=== PATIENT | female | born 1940 | race African-American/Black ===

== ENCOUNTER 2021-06-18 18:16 | Emergency (ER) | payer BC, MEDICAID, MEDICARE ==
[~2021-06-18] VITALS: Ht 162.6 cm; Wt 110.0 kg
[~2021-06-18 18:16] MED LIST: ALBU18HF2 IH; AMLO10TA80 PO; ASPI-1406 PO; ATROPINE SULFATE 1MG/10ML SYR ONE; AZIT500T8 PO; CALCIUM CHLORIDE 1GM/10ML SYR IV ONE; DEXTROSE 50% WATER 50ML SYRINGE IV ONE; EPINEPHRINE 0.1MG/ML (1:10,000) 10ML SYR ONE; P20 PO; SODIUM BICARBONATE 8.4% 1 MEQ/ML 50ML SYR IV ONE
[2021-06-18 18:18] VITALS: BP 150/91
[2021-06-18] MEDS ORDERED: NALOXONE HCL 1 MG/ML 2ML VIAL ONE (18:34)
[2021-06-18] MEDS ORDERED: SODIUM CHLORIDE 0.9% 1,000 ML IV ONE (18:45)
[2021-06-18] MEDS ORDERED: SODIUM BICARBONATE 8.4% 1 MEQ/ML 50ML SYR IV ONE (18:54)
[2021-06-18] MEDS ORDERED: NOREPINEPHRINE 8 MG in DEXT 5% WATER 242 ML IV PRN (19:00)
[2021-06-18] MEDS ORDERED: NOREPINEPHRINE 32 MG in DEXT 5% WATER 218 ML IV PRN (19:00)
[2021-06-18] MEDS ORDERED: EPINEPHRINE 0.1MG/ML (1:10,000) 10ML SYR ONE (19:09)
[2021-06-18 19:12] LABS: BASOPHILS % 0.2 % (0.0-2.0); EOSINOPHILS % 1.8 % (0.0-5.0); HEMATOCRIT. 29.9 % (36.0-48.0); LYMPHOCYTES % 53.1 % (20.0-50.0); MEAN CORPUSCULAR HEMOGLOBIN 28.5 pg (28.0-32.0); MEAN CORPUSCULAR VOLUME 95.1 fL (81.0-99.0); MEAN PLATELET VOLUME 8.3 fl (7.4-10.4); MONOCYTES % 6.3 % (2.0-8.0); NEUTROPHILS % 38.6 % (40.0-76.0); PLATELET 153 x1000/uL (130-400); RED BLOOD CELL COUNT 3.15 mill/uL (4.2-5.4)
[2021-06-18 19:18] LABS: CHLORIDE 105 mEq/L (98-107)
[2021-06-18 19:22] LABS: ETHANOL BLOOD < 10 mg/dL
[2021-06-18 19:24] LABS: INR 1.3; PROTHROMBIN TIME 13.5 sec (9.6-11.0)
== END 2021-06-18 19:02 ==
LOC: ER 18:16
DX: I46.9 Cardiac arrest, cause unspecified (principal); J45.909 Unspecified asthma, uncomplicated; E11.9 Type 2 diabetes mellitus without complications; I10 Essential (primary) hypertension; Z79.899 Other long term (current) drug therapy
CPT/HCPCS: 36415; 36556; 80053; 80320; 82962; 83605; 83880; 84484; 85025; 85610; 86850; 86900; 86901; 92950; 93005; 99285; J0461; J2310; J3490; J7030; J7060; G0480